=== PATIENT | male | born 1980 | race Caucasian/White ===

== ENCOUNTER 2018-08-24 02:27 | Inpatient (IN) | payer BC ==
[2018-08-24 03:54] LABS: Absolute Lymphocytes (CBC) 1.6 K/uL (0.7-4.9); Absolute Monocytes 0.7 K/uL (0.1-1.3); Absolute Neutrophil 7.1 K/uL (1.8-8.0); Basophils % 0.4 % (0-1.3); Eosinophils % 3.1 % (0-4.4); Hematocrit 47.5 % (39.6-49.0); Lymphocytes % 16.4 % (15.3-44.8); MCV 88.6 fL (80-100); MPV 9.7 fL (7.6-11.3); Monocytes % 7.2 % (3.3-12.3); RBC Red Blood Cell Count 5.36 M/uL (4.33-5.43)
[2018-08-24 04:04] LABS: Magnesium 2.2 mg/dL (1.8-2.4); Potassium 3.6 mmol/L (3.5-5.1); Troponin (Emerg Dept Use Only) 0.06 ng/mL (0.0-0.045)
--- NOTE | 2018-08-24 04:40 | EDPHYS ---
Physician Documentation [facility] Name: Adilson Bull Age: 37 yrs Sex: Male : 1980 Arrival Date: 08/24/2018 Time: 02:27 Bed 19 Private MD: ED Physician Govind Liu HPI: 08/24 02:50 This 37 yrs old Male presents to ER via EMS with complaints of Palpitations. rn 02:50 The patient presents with a history of heart racing. Onset: The symptoms/episode rn began/occurred just prior to arrival, at 12:00. Duration: The patient or guardian reports a single episode, that is now resolved. Modifying factors: The symptoms are aggravated by nothing. The symptoms are alleviated by nothing. Severity of symptoms: At their worst the symptoms were moderate in the emergency department the symptoms have resolved. The patient has experienced a previous episode. REports palpitations, began at rest around midnight tonight, now resolved, lasted for about 1 hour, no fever/cough/abd pain/vomiting/diarrhea. REports felt like had trouble breathing. Reports has happened once before and unclear diagnosis. . Historical: - Allergies: 02:52 No Known Allergies; lp1 - Home Meds: 02:52 nifedipine 90 mg Oral TbER 1 tab once daily [Active]; metoprolol tartrate 100 mg Oral lp1 tab 0.5 tab 2 times per day [Active]; terazosin 5 mg oral cap twice a day [Active]; - PMHx: 02:52 Hypertension; lp1 - PSHx: 02:52 None; lp1 - Immunization history:: Adult Immunizations up to date. - Social history:: Smoking status: Patient uses tobacco products, smokes one pack cigarettes per day. - Family history:: not pertinent. - Ebola Screening: : No symptoms or risks identified at this time. - Hospitalizations: : No recent hospitalization is reported. ROS: 02:50 Constitutional: Negative for fever, chills, and weight loss, Eyes: Negative for injury, rn pain, redness, and discharge, Neck: Negative for injury, pain, and swelling, Cardiovascular: Negative for edema Respiratory: Negative for cough, wheezing, and pleuritic chest pain, Abdomen/GI: Negative for abdominal pain, nausea, vomiting, diarrhea, and constipation, MS/Extremity: Negative for injury and deformity, Skin: Negative for injury, rash, and discoloration, Neuro: Negative for headache, weakness, numbness, tingling, and seizure. Exam: 02:50 Constitutional: This is a well developed, well nourished patient who is awake, alert, rn and in no acute distress. Head/Face: Normocephalic, atraumatic. Eyes: Pupils equal round and reactive to light, extra-ocular motions intact. Lids and lashes normal. Conjunctiva and sclera are non-icteric and not injected. Cornea within normal limits. Periorbital areas with no swelling, redness, or edema. ENT: MMM Neck: Trachea midline, no thyromegaly or masses palpated, and no cervical lymphadenopathy. Supple, full range of motion without nuchal rigidity, or vertebral point tenderness. No Meningismus. Cardiovascular: regular rate, no murmur Respiratory: Lungs have equal breath sounds bilaterally, clear to auscultation. No rales, rhonchi or wheezes noted. No increased work of breathing, no retractions or nasal flaring. Abdomen/GI: Soft, non-tender, with normal bowel sounds. No distension or tympany. No guarding or rebound. No evidence of tenderness throughout. Skin: Warm, dry with normal turgor. Normal color with no rashes, no lesions, and no evidence of cellulitis. MS/ Extremity: Pulses equal, no cyanosis. Neurovascular intact. Full, normal range of motion. Equal circumference. Neuro: Awake and alert, GCS 15, oriented to person, place, time, and situation. Cranial nerves II-XII grossly intact. Motor strength 5/5 in all extremities. Sensory grossly intact. Vital Signs: 02:30 BP 166 / 111; Pulse 111; Resp 18; Temp 98.8(O); Pulse Ox 96% on R/A; Weight 90.72 kg; lp1 Height 5 ft. 10 in. (177.80 cm); Pain 0/10; 03:00 BP 128 / 78; Pulse 97; Resp 18; Pulse Ox 97% on R/A; lp1 03:30 BP 152 / 98; Pulse 85; Resp 16; Pulse Ox 95% on R/A; lp1 04:00 BP 156 / 97; Pulse 85; Resp 17; Pulse Ox 97% on R/A; lp1 05:00 BP 138 / 91; Pulse 84; Resp 18; Pulse Ox 96% on R/A; lp1 06:00 BP 129 / 86; Pulse 90; Resp 18; Pulse Ox 98% on R/A; lp1 07:00 BP 136 / 85; Pulse 89; Resp 17; Pulse Ox 96% on R/A; em 08:00 BP 125 / 83; Pulse 79; Resp 19; Pulse Ox 95% on R/A; em 02:30 Body Mass Index 28.70 (90.72 kg, 177.80 cm) lp1 MDM: 02:31 Patient medically screened. rn 04:38 Differential diagnosis: arrythmia, dehydration, stress disorder. Data reviewed: vital rn signs, nurses notes, lab test result(s), EKG, radiologic studies, plain films, and as a result, I will admit patient. Counseling: I had a detailed discussion with the patient and/or guardian regarding: the historical points, exam findings, and any diagnostic results supporting the discharge/admit diagnosis, lab results, radiology results, the need for further work-up and treatment in the hospital. Admission orders: after a detailed discussion of the patient's condition and case, the admit orders are written by me. ED course: + elevated troponin, asymptomatic since arrival, unclear if arrythmia causing demand ischemia vs NSTEMI, given aspirin and lovenox, admitted to Dr. Han, notified \T\ [id number].. 08/24 02:46 Order name: Basic Metabolic Panel; Complete Time: 04:05 rn 08/24 02:46 Order name: CBC with Diff rn 08/24 02:46 Order name: Magnesium; Complete Time: 04:05 rn 08/24 02:46 Order name: Troponin (emerg Dept Use Only); Complete Time: 04:05 rn 08/24 02:46 Order name: XRAY Chest (1 view) rn 08/24 07:23 Order name: Lipid Profile EDMA 08/24 02:46 Order name: EKG; Complete Time: 02:47 rn 08/24 02:46 Order name: Cardiac monitoring; Complete Time: 02:56 rn 08/24 02:46 Order name: EKG - Nurse/Tech; Complete Time: 02:56 rn 08/24 02:46 Order name: IV Saline Lock; Complete Time: 02:56 rn 08/24 02:46 Order name: Labs collected and sent; Complete Time: 02:56 rn 12/02 04:06 Order name: EKG; Complete Time: 04:07 rn 08/24 02:46 Order name: O2 Per Protocol; Complete Time: 02:56 rn 08/24 02:46 Order name: O2 Sat Monitoring; Complete Time: 02:56 rn 08/24 04:06 Order name: EKG - Nurse/Tech; Complete Time: 04:31 rn Administered Medications: 04:39 Not Given (Patient states recieving ASA x4 with EMS): Aspirin Chewable Tablet 324 mg PO lp1 once; 81 mg tablets x 4 04:47 Drug: Lovenox 90 mg Route: Sub-Q; Site: right lower abdomen; lp1 06:57 Follow up: Response: No adverse reaction lp1 Disposition: 08/24/18 04:39 Hospitalization ordered by Kate Han for Inpatient Admission. Preliminary diagnosis are Chest pain, unspecified, Palpitations, Non-ST elevation (NSTEMI) myocardial infarction. - Bed requested for Telemetry/MedSurg (Inpatient). - Status is Inpatient Admission. rb1 - Condition is Stable. - Problem is new. - Symptoms have improved. UTI on Admission? No Signatures: Dispatcher [employer] EDMS Fatmata Arias RN RN kl Govind Liu MD MD rn Pena, Laura, RN RN lp1 Mackenzie Nixon, RN RN rb1 Corrections: (The following items were deleted from the chart) 06:25 04:39 Hospitalization Ordered by Kate Han MD for Inpatient Admission. Preliminary kl diagnosis is Chest pain, unspecified; Palpitations; Non-ST elevation (NSTEMI) myocardial infarction. Bed requested for Telemetry/MedSurg (Inpatient). Status is Inpatient Admission. Condition is Stable. Problem is new. Symptoms have improved. UTI on Admission? No. rn 08:45 06:25 08/24/2018 04:39 Hospitalization Ordered by Kate Han MD for Inpatient rb1 Admission. Preliminary diagnosis is Chest pain, unspecified; Palpitations; Non-ST elevation (NSTEMI) myocardial infarction. Bed requested for Telemetry/MedSurg (Inpatient). Status is Inpatient Admission. Condition is Stable. Problem is new. Symptoms have improved. UTI on Admission? No. kl
--- NOTE | 2018-08-24 04:40 | ER ---
Nurse's Notes [facility] Name: Adilson Bull Age: 37 yrs Sex: Male : 1980 Arrival Date: 08/24/2018 Time: 02:27 Bed 19 Private MD: Diagnosis: Chest pain, unspecified;Palpitations;Non-ST elevation (NSTEMI) myocardial infarction Presentation: 08/24 02:30 Presenting complaint: EMS states: Called for patient having chest pain, feeling like lp1 heart is fluttering, sweating, short of breath; On arrival of EMS, symptoms resolved, patient denies chest pain but continued headache; Per EMS, patient hypertensive at 255/138, HR 130's, hx of HTN, has not taken meds x 3 weeks-does not like the way it makes him feel. Transition of care: patient was not received from another setting of care. Onset of symptoms was August 24, 2018 at 00:00. Risk Assessment: Do you want to hurt yourself or someone else? Patient reports no desire to harm self or others. Initial Sepsis Screen: Does the patient meet any 2 criteria? No. Patient's initial sepsis screen is negative. Does the patient have a suspected source of infection? No. Patient's initial sepsis screen is negative. Care prior to arrival: None. 02:30 Method Of Arrival: EMS: [facility] lp1 02:30 Acuity: JUSTUS 3 lp1 Historical: - Allergies: 02:52 No Known Allergies; lp1 - Home Meds: 02:52 nifedipine 90 mg Oral TbER 1 tab once daily [Active]; metoprolol tartrate 100 mg Oral lp1 tab 0.5 tab 2 times per day [Active]; terazosin 5 mg oral cap twice a day [Active]; - PMHx: 02:52 Hypertension; lp1 - PSHx: 02:52 None; lp1 - Immunization history:: Adult Immunizations up to date. - Social history:: Smoking status: Patient uses tobacco products, smokes one pack cigarettes per day. - Family history:: not pertinent. - Ebola Screening: : No symptoms or risks identified at this time. - Hospitalizations: : No recent hospitalization is reported. Screenin:55 Abuse screen: Denies threats or abuse. Denies injuries from another. Nutritional lp1 screening: No deficits noted. Tuberculosis screening: No symptoms or risk factors identified. Fall Risk None identified. Assessment: 02:54 General: Appears in no apparent distress. Behavior is appropriate for age. Pain: Denies lp1 pain. Neuro: Level of Consciousness is awake, alert, obeys commands, Oriented to person, place, time, situation, Pupils are PERRLA, Reports headache. Cardiovascular: Reports chest pain, resolved at this time Patient's skin is warm and dry. Rhythm is sinus rhythm. Respiratory: Respiratory effort is even, unlabored, Breath sounds are clear bilaterally. GI: No signs and/or symptoms were reported involving the gastrointestinal system. : No signs and/or symptoms were reported regarding the genitourinary system. EENT: No signs and/or symptoms were reported regarding the EENT system. Derm: Skin is pink, warm \T\ dry. Musculoskeletal: Circulation, motion, and sensation intact. 04:00 Reassessment: Patient appears in no apparent distress at this time. Patient and/or lp1 family updated on plan of care and expected duration. Pain level reassessed. Patient resting, eyes closed, respirations unlabored. 04:41 Reassessment: Patient aware of pending admission per Provider. lp1 05:40 Reassessment: Patient appears in no apparent distress at this time. Patient resting, lp1 eyes closed, respirations unlabored; aware of pending admission. 06:40 Reassessment: Dr. Han at bedside. lp1 08:05 Reassessment: DANTE Mann gave report to DANTE Ulloa. Information from the SBAR was em given. All questions asked and answered. Vital Signs: 02:30 BP 166 / 111; Pulse 111; Resp 18; Temp 98.8(O); Pulse Ox 96% on R/A; Weight 90.72 kg; lp1 Height 5 ft. 10 in. (177.80 cm); Pain 0/10; 03:00 BP 128 / 78; Pulse 97; Resp 18; Pulse Ox 97% on R/A; lp1 03:30 BP 152 / 98; Pulse 85; Resp 16; Pulse Ox 95% on R/A; lp1 04:00 BP 156 / 97; Pulse 85; Resp 17; Pulse Ox 97% on R/A; lp1 05:00 BP 138 / 91; Pulse 84; Resp 18; Pulse Ox 96% on R/A; lp1 06:00 BP 129 / 86; Pulse 90; Resp 18; Pulse Ox 98% on R/A; lp1 07:00 BP 136 / 85; Pulse 89; Resp 17; Pulse Ox 96% on R/A; em 08:00 BP 125 / 83; Pulse 79; Resp 19; Pulse Ox 95% on R/A; em 02:30 Body Mass Index 28.70 (90.72 kg, 177.80 cm) lp1 ED Course: 02:27 Patient arrived in ED. al2 02:31 Govind Liu MD is Attending Physician. rn 02:45 Michelle Faulkner, DANTE is Primary Nurse. lp1 02:49 Triage completed. lp1 02:50 Arm band placed on left wrist. lp1 02:53 Patient has correct armband on for positive identification. Bed in low position. Call lp1 light in reach. site monitor on. Pulse ox on. NIBP on. 02:53 EKG done, by ED staff, reviewed by Govind Liu MD. lp1 02:54 Inserted saline lock: 20 gauge in right antecubital area, using aseptic technique. lp1 Blood collected. By [place]. Patient maintains SpO2 saturation greater than 95% on room air. 03:06 X-ray completed. Portable x-ray completed in exam room. Patient tolerated procedure sg4 well. 03:07 XRAY Chest (1 view) In Process Unspecified. EDMS 04:39 Kate Han MD is Hospitalizing Provider. rn 04:44 No provider procedures requiring assistance completed. Patient admitted, IV remains in lp1 place. Administered Medications: 04:39 Not Given (Patient states recieving ASA x4 with EMS): Aspirin Chewable Tablet 324 mg PO lp1 once; 81 mg tablets x 4 04:47 Drug: Lovenox 90 mg Route: Sub-Q; Site: right lower abdomen; lp1 06:57 Follow up: Response: No adverse reaction lp1 Outcome: 04:39 Decision to Hospitalize by Provider. rn 04:44 Condition: stable lp1 06:55 Instructed on the need for admit. lp1 08:45 Patient left the ED. rb1 Signatures: Dispatcher [employer] EDMS Tony Ayala, FLAKEBOARD LINE TENDER FLAKEBOARD LINE TENDER em Govind Liu MD MD rn Michelle Faulkner RN RN lp1 Mackenzie Nixon RN RN rb1 Vicki Sullivan2 Lolly Ojeda sg4 Corrections: (The following items were deleted from the chart) 02:53 02:30 Presenting complaint: EMS states: Called for patient having chest pain, feeling lp1 like heart is fluttering, sweating, short of breath; On arrival of EMS, symptoms resolved, patient denies chest pain but continued headache; Per EMS, patient hypertensive at 255/138, hx of HTN, has not taken meds x 3 weeks-does not like the way it makes him feel lp1 02:55 02:54 Cardiovascular: Patient's skin is warm and dry. Rhythm is sinus rhythm lp1 lp1 04:42 04:00 BP 115 / 67; Pulse 79bpm; Resp 18bpm; Pulse Ox 100% RA; lp1 lp1 08:15 08:05 Reassessment: Gave report to DANTE Ulloa. Information from the SBAR was given. All em questions asked and answered. em
[2018-08-24] MEDS ORDERED: ASPIRIN 81 MG CHEWABLE TABLET ONE (04:43)
[2018-08-24] MEDS ORDERED: ENOXAPARIN 100 MG/ML SYR SQ ONE (04:44)
[2018-08-24] MEDS ORDERED: MORPHINE 4 MG/ML SYR IV PRN (05:59)
--- NOTE | 2018-08-24 06:15 | EKG ---
Test Date: 2018-08-24 Test Time: 04:22:47 Nurse Researcher: SAMY MEASUREMENT RESULTS: Intervals: Rate: 81 NJ: 144 QRSD: 92 QT: 418 QTc: 485 [place]: P: 49 NJ: 144 QRS: -24 T: 139 INTERPRETIVE STATEMENTS: Normal sinus rhythm Left atrial enlargement Left ventricular hypertrophy with repolarization abnormality Prolonged QT Abnormal ECG Compared to ECG 08/24/2018 02:42:40 No significant changes Electronically Signed On 08-24-18 06:14:54 PAD CUTTER by Brice Angel
--- NOTE | 2018-08-24 06:16 | EKG ---
Test Date: 2018-08-24 Test Time: 02:42:40 Barytes Grinder: SAMY MEASUREMENT RESULTS: Intervals: Rate: 90 WA: 138 QRSD: 94 QT: 396 QTc: 484 [place]: P: 58 WA: 138 QRS: -11 T: 135 INTERPRETIVE STATEMENTS: Normal sinus rhythm Possible Left atrial enlargement Left ventricular hypertrophy with repolarization abnormality Prolonged QT Abnormal ECG Compared to ECG 07/22/2017 06:34:18 no significant change from previous ECG Electronically Signed On 08-24-18 06:15:09 VP TALENT MANAGEMENT by Brice Angel
[2018-08-24] MEDS ORDERED: ENOXAPARIN 80 MG/0.8 ML SQ SCH (09:00)
[2018-08-24] MEDS ORDERED: METOPROLOL TAR 50 MG TAB PO SCH (09:00)
[2018-08-24] MEDS ORDERED: ENOXAPARIN 40 MG/0.4 ML SQ SCH (09:00)
[2018-08-24 09:20] VITALS: BMI 28.7
--- NOTE | 2018-08-24 10:00 | RAD REPORT ---
EXAM DESCRIPTION: RAD - Chest Single View - 08/24/2018 3:07 am CLINICAL HISTORY: Chest pain, palpitations COMPARISON: June 2017 TECHNIQUE: AP portable chest image was obtained 0258 hours . FINDINGS: No acute lung parenchymal process. Lung markings are similar to comparison. Heart size is upper normal. No vascular engorgement. No measurable pleural effusion and no pneumothorax. No acute b tree abnormality seen. No acute aortic findings suspected. IMPRESSION: No acute cardiopulmonary process. No significant interval change.
[2018-08-24] MEDS: ASPIRIN EC 81 MG TAB PO SCH (10:42)
--- NOTE | 2018-08-24 10:42 | P.HP ---
Certification for Inpatient Patient admitted to: Inpatient With expected LOS: >2 Midnights Practitioner: I am a practitioner with admitting privileges, knowledge of patient current condition, hospital course, and medical plan of care. Services: Services provided to patient in accordance with Admission requirements found in Title 42 Section 412.3 of the Code of Federal Regulations Patient History Date of Service: 08/24/18 Reason for admission: Chest pain; elevated troponins History of Present Illness: Patient is a 37yo Gentleman who came into the hospital with chest discomfort. Patient has a history of hypertension L diagnostically years ago. Who is been poorly controlled. He states he has been getting more chest discomfort and shortness of breath. Patient has a history of tobacco use and family history of cardiac disease as well. Patient came into the hospital for further evaluation. The emergency room his troponins were slightly elevated. EKG did not show any acute abnormalities. Patient will need to be admitted to be ruled out and will get cardiology consultation. Patient continues to have some chest discomfort. Will go ahead and start him on anticoagulation along with anti- platelet therapy and statin therapy along with beta-theo. Allergies No Known Allergies Allergy (Verified 07/22/17 01:35) Home Medications: Metoprolol Succinate [Toprol Xl] 50 mg PO BID 08/24/18 Nifedipine [Nifedipine ER] 1 tab PO DAILY 08/24/18 Terazosin HCl 5 mg PO BID 08/24/18 - Past Medical/Surgical History Diabetic: No -: HTN -: tobacco abuse -: reattachment of (L) thumb - Family History Mother Medical History: Hypertension Father Medical History: Cancer Brother Medical History: Hypertension Sister Medical History: Hypertension - Social History Smoking Status: Current every day smoker Alcohol use: Yes CD- Drugs: No Caffeine use: Yes Place of Residence: Home Review of Systems 10-point ROS is otherwise unremarkable Physical Examination - Vital Signs Temperature: 98.8 F Blood Pressure: 125/83 Pulse: 79 Respirations: 19 Pulse Ox (%): 96 - Physical Exam General: Alert, In no apparent distress, Oriented x3 HEENT: Atraumatic, PERRLA, Mucous membr. moist/pink, EOMI, Sclerae nonicteric Neck: Supple, 2+ carotid pulse no bruit, No LAD, Without JVD or thyroid abnormality Respiratory: Clear to auscultation bilaterally, Normal air movement Cardiovascular: Regular rate/rhythm, Normal S1 S2, No murmurs Gastrointestinal: Normal bowel sounds, Soft and benign, Non-distended, No tenderness Musculoskeletal: No clubbing, No swelling, No tenderness Integumentary: No rashes Neurological: Normal gait, Normal speech, Normal strength at 5/5 x4 extr, Normal tone, Sensation intact, Cranial nerves 3-12 intact, Normal affect Lymphatics: No axilla or inguinal lymphadenopathy - Studies Laboratory Data (last 24 hrs) 08/24/18 02:53: WBC 9.8, Hgb 16.6, Hct 47.5, Plt Count 228 08/24/18 02:53: Sodium 140, Potassium 3.6, BUN 19 H, Creatinine 1.40 H, Glucose 129 H, Magnesium 2.2 Assessment & Plan - Problems (Diagnosis) (1) Elevated troponin Onset Date: 07/22/17 Current Visit: No Status: Acute (2) Hypertensive heart disease Current Visit: No Status: Acute Qualifiers: Heart failure presence: without heart failure Qualified Code(s): I11.9 - Hypertensive heart disease without heart failure (3) Malignant hypertension Onset Date: 07/22/17 Current Visit: No Status: Acute (4) Nicotine dependence Current Visit: No Status: Acute Qualifiers: Nicotine product type: cigarettes Substance use status: uncomplicated Qualified Code(s): F17.210 - Nicotine dependence, cigarettes, uncomplicated - Plan 1. Serial troponins and EKG 2. Cardiology consultation 3. Echocardiogram and inpatient stress test(pending cardiology evaluation) 4. Anti-platelet therapy, anti coagulation, beta-theo, statin, and O2 as needed 5. IV morphine for pain 6. Nitro p.r.n. Discharge Plan: Home Plan to discharge in: Greater than 2 days - Advance Directives Does patient have a Living Will: No Does patient have a Durable POA for Healthcare: No - Code Status/Comfort Care Code Status Assessed: Yes Code Status: Full Code Critical Care: No Time Spent Managing PTS Care (In Minutes): 50
[2018-08-24] MEDS: ENOXAPARIN 80 MG/0.8 ML SQ SCH ×2 (11:33→22:06)
--- NOTE | 2018-08-24 16:27 | CON ---
CARDIOLOGY CONSULT Chief Complaint: Irregular heartbeat. History Of Present Illness: Mr. Bull awakened sometime between midnight and 1 with heart racing. An ambulance was called. By the time he got to the emergency room, he was in normal rhythm. There was some discomfort when it was irregular, but not pain. Laboratory test that was drawn included a t roponin. It is abnormal. It is 0.06. His lipid panel is fine. He has renal insufficiency, mildly elevated blood sugar. Mr. Bull has never had heart disease before. Social History: He is a regular tobacco user. Alcohol use moderate. No recreational drugs. Medications: He takes medicines for blood pressure, terazosin, metoprolol, and nifedipine. Allergies: HE HAS NO ALLERGIES. Physical Examination: Vital Signs: He is 5 feet 10 inches, 200 pounds. HEENT: Normal carotids. No bruits. Heart: Normal. Abdomen: Soft. Extremities: Normal. Normal pulses. Impression And Plan: My impression is that the patient may have atrial fibrillation or some other ar rhythmia. We have not seen any. The abnormal troponin associated with a brief amount of arrhythmia would make anyone wonder whether he has coronary artery disease, so I will recommend we do a stress t est and echocardiogram tomorrow. LILLI/WALTER Voice ID: [id number] Report ID: [id number]
[2018-08-24] MEDS: NICOTINE 21 MG/PAT TD SCH (17:43)
--- NOTE | 2018-08-24 19:12 | PN ---
Date of Progress Note: 08/24/2018 Subjective: Patient is seen and examined. Chart reviewed and case discussed with RN and Dr. Angel. Patient states his chest pain has improved. No significant shortness of breath. Medications: Reviewed. Physical Examination: Vital Signs: Temperature 97.2, heart rate 78, blood pressure 144/84, respirations 16, O2 94% on room air. General: Awake, alert, and oriented x3, in in any acute distress. CV: S1, S2. Regular rate and rhythm. Peripheral pulses present. No murmurs. Respiratory: Moving air well bilaterally. No wheezing or stridor. Gastrointestinal: Abdomen is soft, nontender, nondistended. Positive bowel sounds. No guarding or rigidity. Extremities: No clubbing, cyanosis, or edema. Neurologic: Nonfocal. Laboratory Data: Sodium 140, potassium 3.6, chloride 106, CO2 of 26, BUN 19, creatinine 1.4, glucose 129, calcium 8.2. Troponin 0.06, 0.13. Triglycerides 96, cholesterol 157, LDL 107, HDL 31. WBC 9. 8, H and H 16.6 and 47.5, platelets 228. Chest x-ray shows no acute cardiopulmonary process. EKG sh ows normal sinus rhythm, rate of 81, LVH with repolarization abnormality, prolonged QT. Assessment And Plan: A 37-year-old male with: 1.Chest pain, rule out acute coronary syndrome. The patient does have elevated troponin level of 0. 06, 0.13. We will continue with chest pain guidelines. Cardiology on board. Dr. Angel recommends a stress test in a.m. 2.Hypertensive heart disease. The EKG shows left ventricular hypertrophy. 3.Malignant hypertension. 4.Nicotine dependence with cigarette smoking, continuous, counseled. 5.Chronic kidney disease, stage 2, clear. Monitor creatinine. Avoid NSAIDs and nephrotoxins. 6.Gastrointestinal and deep venous thrombosis prophylaxis addressed. Plan: Cardiac stress test is in a.m. SA/MODL Voice ID: [id number] Report ID: [id number]
[2018-08-24] MEDS: METOPROLOL XL 100 MG TAB PO SCH (21:53)
[2018-08-24] MEDS: ATORVASTATIN 20 MG TAB PO SCH (21:53)
[2018-08-25 05:55] LABS: Absolute Lymphocytes (CBC) 2.9 K/uL (0.7-4.9); Absolute Neutrophil 6.5 K/uL (1.8-8.0); Basophils % 0.7 % (0-1.3); Eosinophils % 3.7 % (0-4.4); Hematocrit 47.9 % (39.6-49.0); Lymphocytes % 27.1 % (15.3-44.8); MCV 89.6 fL (80-100); MPV 9.5 fL (7.6-11.3); Monocytes % 8.8 % (3.3-12.3); RBC Red Blood Cell Count 5.34 M/uL (4.33-5.43)
[2018-08-25 06:09] LABS: Potassium 4.1 mmol/L (3.5-5.1)
[2018-08-25] MEDS ORDERED: REGADENOSON 0.4 MG/5 ML SYR IV ONE (09:21)
[2018-08-25] MEDS: NICOTINE 21 MG/PAT TD SCH (10:11)
[2018-08-25] MEDS: ENOXAPARIN 80 MG/0.8 ML SQ SCH (10:11)
[2018-08-25] MEDS: ASPIRIN EC 81 MG TAB PO SCH (10:11)
[2018-08-25] MEDS: METOPROLOL XL 100 MG TAB PO SCH ×2 (10:12→20:39)
[2018-08-25] MEDS: HYDRALAZINE HCL 20 MG/ML VIAL IV PRN ×2 (11:37→17:02)
--- NOTE | 2018-08-25 15:21 | ECHO ---
HEIGHT: 5 ft 10 in WEIGHT: 200 lb 0 oz DATE OF STUDY: 08/25/[address]: 2-DIMENSIONAL: YES M.MODE: YES DOPPLER: YES COLOR FLOW: YES TDS: NO PORTABLE: NO DEFINITY: NO BUBBLE STUDY: NO DIAGNOSIS: CHEST PAIN RULE OUT ACUTE CORONARY SYNDROME CARDIAC HISTORY: CATHERIZATION: NO SURGERY: NO PROSTHETIC VALVE: NO PACEMAKER: NO MEASUREMENTS (cm) DIASTOLIC (NORMALS) SYSTOLIC (NORMALS) IVSd 1.4 (0.6-1.2) LA Diam 3.9 (1.9-4.0) LVEF 61% LVIDd 4.6 (3.5-5.7) LVIDs 3.1 (2.0-3.5) %FS 33% LVPWd 1.4 (0.6-1.2) Ao Diam 2.8 (2.0-3.7) 2 DIMENSIONAL ASSESSMENT: RIGHT ATRIUM: NORMAL LEFT ATRIUM: NORMAL RIGHT VENTRICLE: NORMAL LEFT VENTRICLE: LEFT VENTRICULAR HYPERTROPHY TRICUSPID VALVE: NORMAL MITRAL VALVE: NORMAL PULMONIC VALVE: NORMAL AORTIC VALVE: NORMAL PERICARDIAL EFFUSION: NONE AORTIC ROOT: NORMAL LEFT VENTRICULAR WALL MOTION: NORMAL DOPPLER/COLOR FLOW: NORMAL COMMENTS: LEFT VENTRICULAR HYPERTROPHY. OTHERWISE NORMAL 2D ECHOCARDIOGRAM WITH DOPPLER. TECHNOLOGIST: ABY RIBERA RDCS
--- NOTE | 2018-08-25 15:54 | RAD REPORT ---
EXAM DESCRIPTION: NM - Rest Stress Cardiac Imaging - 08/25/2018 3:39 pm CLINICAL HISTORY: CP Chest pain. COMPARISON: Rest Stress Cardiac Imaging dated 07/23/2017 TECHNIQUE: The patient was administered approximately 10mCi of Tc 99m Sestamibi prior to resting SPE CT imaging of the heart. The patient was then administered approximately 30 mCi of Tc 99m Sestamibi f ollowing exercise or pharmacologic stress. Multiplanar SPECT images were reviewed. FINDINGS: The left ventricular cavity appears prominent in size on both rest and stress. Mild dimini shed radiopharmaceutical accumulation is seen along the lateral wall with stress. No fixed defect is seen to suggest hibernating myocardium or scarred myocardium. The end diastolic volume is 190 ml, the end systolic volume is 129 ml, and the ejection fraction is 3 2 %. IMPRESSION: Mild lateral wall stress-induced ischemia is suspected. Left ventricular cavity size is prominent on rest and stress with diminished ejection fraction of 32% .
--- NOTE | 2018-08-25 16:46 | TREADPHA ---
DX: ABNORMAL TROPONIN Date of Study: 08/25/2018 Ht: 5 10 Wt: 200 lb 0 oz Consulting Physician: DR. RUIZ MEDICATIONS: TYLENOL, ASPIRIN, LIPITOR, LOVENOX, TOPROL XL. HISTORY: 37 YEAR OLD MALE WITH COMPLAINTS OF CHEST PAIN, PALPITATIONS, NON- ST ELEVATION MYOCARDIAL INFARCTION. HISTORY OF HYPERTENSION, SMOKER, 1 PACK PER DAY. PHYSICIAL EXAMINATION: RESTING B.P.: 183/120 RESTING H.R.: 92 RESTING EKG: LEFT VENTRICULAR HYPERTROPHY WITH REPOLARIZATION ABNORMALITIES PROTOCOL: LEXISCAN EXERCISE TIME: 3:30 B.P. AT PEAK STRESS: 187/122 IMPRESSION: LEXISCAN INJECTED PER PROTOCOL, FOLLOWED BY CARDIOLITE PER PROTOCOL. SEE NUCLEAR MEDICINE REPORT. NO SUPRAVENTRICULAR TACHYCARDIA, NO VENTRICULAR TACHYCARDIA, NO PREMATURE ATRIAL COMPLEXES, NO PREMATURE VENTRICULAR COMPLEXES, NO CHEST PAIN REPORTED. NON-DIAGNOSITC EXERCISE LEXISCAN STUDY.
[2018-08-25] MEDS: ACETAMINOPHEN 500 MG TAB PO PRN (19:31)
[2018-08-25] MEDS: ATORVASTATIN 20 MG TAB PO SCH (20:40)
[2018-08-26] MEDS: ASPIRIN EC 81 MG TAB PO SCH (07:54)
[2018-08-26] MEDS: METOPROLOL XL 100 MG TAB PO SCH (07:54)
[2018-08-26] MEDS: HYDRALAZINE HCL 20 MG/ML VIAL IV PRN (10:02)
[2018-08-26] MEDS: NICOTINE 21 MG/PAT TD SCH (10:03)
[2018-08-26] MEDS ORDERED: NA CHLORIDE 0.9% 500 ML ONE (10:39)
[2018-08-26] MEDS ORDERED: HEPA 1000U/500MLS 1,000 UNIT/500 ML BAG IV ONE (10:39)
[2018-08-26] MEDS ORDERED: NA CHLORIDE 0.9% 0 ML ONE (10:40)
[2018-08-26] MEDS ORDERED: MIDAZOLAM HCL 2 MG/2 ML INJ ONE ×2 (10:40→10:52)
[2018-08-26] MEDS ORDERED: ATROPINE SULF 1 MG/10 ML SYR IV ONE (10:40)
[2018-08-26] MEDS ORDERED: FENTANYL CITR 100 MCG/2 ML ONE ×2 (10:43→11:18)
[2018-08-26] MEDS: ACETAMINOPHEN 500 MG TAB PO PRN (13:33)
[2018-08-26 16:20] VITALS: O2SAT 8
[2018-08-26 17:54] VITALS: BP 160/108; TEMP 98.1
--- NOTE | 2018-08-26 21:58 | OP ---
Surgeon: Obdulio Bain MD Dot Etcher: Tobi Sanderson. Total conscious sedation was 30 minutes. The patient will be going home today. He will see me in e office in 2 weeks. Indications: Admitted to Dr. Rick's service on 08/24/2018. The patient had come in with tachycardi a, shortness of breath, and atypical chest pain, has a positive Cardiolite, scheduled for a heart cat heterization today as an inpatient. Description Of Procedure: Brought to the laborer car barn today and prepped and draped in the routine steril e fashion, given 3 mg of Versed for IV sedation. A 6-Faroese sheath was introduced in the right commo n femoral artery. Angiogram there was normal. Angio-Seal was used to close the case. The 6-Faroese catheters were used to do the left and right coronary injection. He had normal coronaries, normal LA D, normal circumflex, normal RCA, and left-dominant system. A pigtail was introduced in the left lilibeth tricle. LV-gram was done. He had a hyperdynamic left ventricle with a normal ejection fraction, nor mal wall motion, and normal end-diastolic pressure. There were no complications. Blood Loss: 5 cc. Postoperative Diagnoses: Positive Cardiolite, tachycardia, and normal heart catheterization. Plan: Plan is for medical therapy with beta blockers. Print Shop Chief Clerk: Sandy Burton Voice ID: [id number] Report ID: [id number]
--- NOTE | 2018-08-27 08:35 | DS ---
Date of Discharge: 08/26/2018 Consultants: Dr. Angel, Cardiology. Procedures: Cardiac stress test on 08/25/2018. Admitting Diagnoses: 1. Elevated troponin and chest pain. 2. Hypertensive heart disease without heart failure. 3. Malignant hypertension. 4. Nicotine dependence, cigarette smoking, uncomplicated. 5. Acute kidney injury. Discharge Diagnoses: 1. Elevated troponin and chest pain. 2. Hypertensive heart disease. 3. Malignant hypertension. 4. Nicotine dependence with cigarette smoking, continuous, counseled. 5. Chronic kidney disease stage 2, creatinine improved. Hospital Course: The patient is a 37-year-old male with past medical history of hypertension, tobacco use, and chronic kidney disease, comes in with chest discomfort. The patient was admitted for further evaluation. His cardiac enzymes were elevated at 0.06, 0.13, 0.37. Lipid panel showed low HDL at 31. Triglycerides and cholesterol were normal. LDL was 107. The patient did have some hypertensive heart disease, on EKG. Echocardiogram and stress test ordered. Cardiac stress test was ordered. The patient was also seen by Dr. Angel with Cardiology. He did not have any arrhythmias. The patient was counseled regarding nicotine dependence. Followup: The patient to follow up with primary care physician in 2-3 days. Follow up with typewriters functional tester, Dr. Angel in 2 weeks. Return to the ER for worsening condition. Medications: As per medication reconciliation list. Diet: Heart healthy. Physical Examination: General: Awake, alert, oriented x3, not in acute distress. CV: S1 and S2. No murmurs. Respiratory: Moving air well bilaterally. No wheezing. Gastrointestinal: Abdomen is soft, nontender, nondistended. Positive bowel sounds. Extremities: No clubbing, cyanosis, or edema. Neurologic: Nonfocal. ADDENDUM: Patients stress test was positive. Scheduled for heart cath. Please see progress note for details SA/MODL Voice ID: [id number] Report ID: [id number] MTDD
== END 2018-08-26 18:19 | disposition home or self-care (01) | DRG 287 ==
LOC: ER 02:27 → INTOOBSV 04:49 → ERHOLD 04:49 → 2ND 08:13 → OBSVTOIN 08-25 04:48
PROVIDERS: ADMIT Hospitalist; ATTEND Family Medicine
PROC: 4A023N7 Measurement of Cardiac Sampling and Pressure, Left Heart, Percutaneous Approach (ICD-10-PCS; principal; 2018-08-26)
PROC: B2111ZZ Fluoroscopy of Multiple Coronary Arteries using Low Osmolar Contrast (ICD-10-PCS; 2018-08-26)
DX: R07.9 Chest pain, unspecified (principal); N17.9 Acute kidney failure, unspecified; R79.89 Other specified abnormal findings of blood chemistry; I13.10 Hypertensive heart and chronic kidney disease without heart failure, with stage 1 through stage 4 chronic kidney disease, or unspecified chronic kidney disease; N18.2 Chronic kidney disease, stage 2 (mild); F17.210 Nicotine dependence, cigarettes, uncomplicated; R00.0 Tachycardia, unspecified
CPT/HCPCS: 36415; 71045; 78452; 80048; 80061; 82962; 83735; 84484; 85025; 93005; 93017; 93306; 96372; 99285; A9500; G0378; J0360; J0583; J1650; J2250; J2785; J3010

== ENCOUNTER 2019-11-08 08:38 | Observation (INO) | payer BC ==
[2019-11-08] MEDS ORDERED: NITROGLYCERIN 0.4 MG/TAB SL ONE (08:56)
[2019-11-08 09:04] LABS: Absolute Lymphocytes (CBC) 1.9 K/uL (0.7-4.9); Basophils % 0.7 % (0-1.3); Hematocrit 50.5 % (39.6-49.0); Lymphocytes % 22.8 % (15.3-44.8); RBC Red Blood Cell Count 5.76 M/uL (4.33-5.43)
[2019-11-08 09:08] LABS: Protime INR 1.11
[2019-11-08 09:24] LABS: ALT/SGPT 33 U/L (12-78); AST/SGOT 17 U/L (15-37); Albumin 4.1 g/dL (3.4-5.0); Alkaline Phosphatase 61 U/L (45-117); BUN Blood Urea Nitrogen 13 mg/dL (7-18); Bicarbonate 25 mmol/L (21-32); Bilirubin Direct 0.1 mg/dL (0-0.2); Bilirubin Total 0.5 mg/dL (0.2-1.0); Glucose Level 138 mg/dL (74-106); Magnesium 1.9 mg/dL (1.8-2.4); NT PRO-BNP 87 pg/mL (<125); Potassium 3.7 mmol/L (3.5-5.1); Protein, Total 7.1 g/dL (6.4-8.2); Sodium Level 139 mmol/L (136-145); Troponin (Emerg Dept Use Only) < 0.02 ng/mL (0.0-0.045)
--- NOTE | 2019-11-08 09:52 | ER ---
Nurse's Notes [facility] Name: Adilson Bull Age: 39 yrs Sex: Male : 1980 Arrival Date: 11/08/2019 Time: 08:40 Bed 3 Private MD: Diagnosis: Unstable angina Presentation: 11/08 08:47 Presenting complaint: Patient states: fatigue, nausea, chest/ L arm discomfort and ss shortness of breath on exertion since noon yesterday. Transition of care: patient was not received from another setting of care. Onset of symptoms was November 07, 2019. Risk Assessment: Do you want to hurt yourself or someone else? Patient reports no desire to harm self or others. Initial Sepsis Screen: Does the patient meet any 2 criteria? RR > 20 per min. HR > 90 bpm. Does the patient have a suspected source of infection? No. Patient's initial sepsis screen is negative. Care prior to arrival: Medication(s) given: ASA, 81 mg, x 4. 08:47 Acuity: JUSTUS 2 ss 08:47 Method Of Arrival: Ambulatory ss Historical: - Allergies: 08:49 No Known Allergies; ss - Home Meds: 08:49 terazosin 5 mg Oral cap twice a day [Active]; nifedipine 90 mg Oral TbER 1 tab once ss daily [Active]; metoprolol tartrate 100 mg Oral tab 0.5 tab 2 times per day [Active]; - PMHx: 08:49 Hypertension; ss - PSHx: 08:49 None; ss - Immunization history:: Adult Immunizations up to date. - Coronavirus screen:: The patient has NOT traveled to [place] in the past 14 days. Proceed with normal triage process as indicated. - Social history:: Smoking status: Patient reports the use of cigarette tobacco products, smokes one pack cigarettes per day. - Ebola Screening: : Patient denies exposure to infectious person Patient denies travel to an Ebola-affected area in the 21 days before illness onset. Screenin:57 Abuse screen: Denies threats or abuse. Nutritional screening: No deficits noted. em Tuberculosis screening: No symptoms or risk factors identified. Fall Risk None identified. Assessment: 08:58 General: Appears in no apparent distress. uncomfortable, well groomed, well developed, em well nourished, Behavior is calm, cooperative, appropriate for age, Denies fever. Pain: Complains of pain in chest Pain radiates to left arm Pain currently is 3 out of 10 on a pain scale. Quality of pain is described as pressure, Pain began 1 hour ago. Neuro: Level of Consciousness is awake, alert, obeys commands, Oriented to person, place, time, situation, Appropriate for age. Cardiovascular: Reports chest pain, nausea, palpitations, shortness of breath, Denies diaphoresis, vomiting, Capillary refill < 3 seconds Patient's skin is warm and dry. Rhythm is sinus rhythm. Respiratory: Reports shortness of breath on exertion Airway is patent Respiratory effort is even, unlabored, Respiratory pattern is regular, symmetrical. GI: Reports nausea. Derm: Skin is intact, is healthy with good turgor, Skin is pink, warm \T\ dry. Musculoskeletal: Capillary refill < 3 seconds, Range of motion: intact in all extremities. 09:23 Reassessment: Patient appears in no apparent distress at this time. rates pain 0/10 em Patient denies pain at this time. Patient states feeling better. Patient states symptoms have improved. 10:15 Reassessment: Patient appears in no apparent distress at this time. Patient and/or em family updated on plan of care and expected duration. Pain level reassessed. Patient is alert, oriented x 3, equal unlabored respirations, skin warm/dry/pink. pending room assignment Patient states feeling better. Patient states symptoms have improved. 11:00 Reassessment: Patient appears in no apparent distress at this time. Patient and/or em family updated on plan of care and expected duration. Pain level reassessed. Patient is alert, oriented x 3, equal unlabored respirations, skin warm/dry/pink. Vital Signs: 08:46 BP 172 / 114; Pulse 123; Resp 21; Temp 97.6; Pulse Ox 100% on R/A; Weight 95.25 kg; ss Height 5 ft. 10 in. (177.80 cm); Pain 4/10; 08:52 BP 152 / 102; Pulse 116; Pulse Ox 99% ; Pain 4/10; ch 09:00 BP 147 / 77; Pulse 116; Resp 20; Pulse Ox 95% on R/A; Pain 3/10; em 09:12 BP 156 / 94; Pulse 98; Resp 18; Pulse Ox 97% on 2 lpm NC; em 09:23 BP 130 / 95; Pulse 82; Resp 18; Pulse Ox 100% on 2 lpm NC; Pain 0/10; em 09:43 BP 135 / 91; Pulse 86; Resp 18; Pulse Ox 98% on 2 lpm NC; em 10:57 BP 145 / 96; Pulse 85; Resp 16; Pulse Ox 98% on R/A; Pain 0/10; em 08:46 Body Mass Index 30.13 (95.25 kg, 177.80 cm) ss 09:00 placed on 2 L via NC em 09:43 rates chest pain 0/10, headache has improved to 2/10 em 10:57 removed O2, states it was bothering his nose em ED Course: 08:40 Patient arrived in ED. sg 08:41 Richard Schafer PA is PHCP. jr8 08:41 Akin Eng MD is Attending Physician. jr8 08:42 Annette Mejia RN is Primary Nurse. ch 08:46 Arm band placed on right wrist. ss 08:48 Triage completed. ss 08:53 Initial lab(s) drawn, by me, sent to lab. Inserted saline lock: 22 gauge in right kj1 antecubital area, using aseptic technique. Blood collected. 08:57 Patient has correct armband on for positive identification. Placed in gown. Bed in low em position. Call light in reach. Side rails up X2. Adult w/ patient. ekg monitor on. Pulse ox on. NIBP on. 08:57 Patient maintains SpO2 saturation greater than 95% on room air. em 09:51 Sawyer Ha MD is Hospitalizing Provider. jr8 10:58 No provider procedures requiring assistance completed. Patient admitted, IV remains in em place. Administered Medications: 08:52 Drug: Nitroglycerin 0.4 mg Route: Sublingual; 08:58 Follow up: Response: No adverse reaction; Marked relief of symptoms; Pain is decreased em 09:00 Follow up: Response: No adverse reaction; Marked relief of symptoms; Pain is decreased em 09:09 Drug: Tylenol 1000 mg Route: PO; em 10:15 Follow up: Response: No adverse reaction; Marked relief of symptoms; Pain is decreased em 09:17 Drug: Lopressor 5 mg Route: IVP; Site: right antecubital; em 09:30 Follow up: Response: No adverse reaction; Marked relief of symptoms; Pain is decreased em 09:56 Not Given (Physician Discretion; increaded to 100 mg per provider ): Lovenox 1 mg/kg em Sub-Q once 09:56 Drug: Lovenox 100 mg Route: Sub-Q; Site: right lower abdomen; em 10:14 Follow up: Response: No adverse reaction em Outcome: 09:51 Decision to Hospitalize by Provider. jr8 10:58 Admitted to Tele accompanied by tech, family with patient, via wheelchair, room 211, em with chart, Report called to DANTE Georges 10:58 Condition: good 10:58 Instructed on the need for admit, Demonstrated understanding of instructions. 11:03 Patient left the ED. em Signatures: Annette Mejia, RN RN Pablo Aldana RN RN Tony Ayala RN RN Kylie Garcia RN RN ss Roszak, Josh, PA PA jr[address] kj1 Corrections: (The following items were deleted from the chart) 09:37 09:00 BP 147 / 77; Pulse 116bpm; Resp 20bpm; Pulse Ox 95% RA; placed on 2 L via NC; em em 10:52 08:58 Nitroglycerin 0.4 mg Sublingual em em
--- NOTE | 2019-11-08 09:52 | EDPHYS ---
Physician Documentation [facility] Name: Adilson Bull Age: 39 yrs Sex: Male : 1980 Arrival Date: 11/08/2019 Time: 08:40 Bed 3 Private MD: ED Physician Akin Eng HPI: 11/08 09:07 This 39 yrs old Male presents to ER via Ambulatory with complaints of Chest jr8 Pain > 30 y/o. 09:07 The patient or guardian reports chest pain that is located primarily in the substernal jr8 area. Onset: acutely, today. The pain radiates to the left arm. Associated signs and symptoms: Pertinent positives: palpitations, shortness of breath. The chest pain is described as a pressure. Duration: The patient or guardian reports a single episode, that is still ongoing. Modifying factors: The symptoms are alleviated by nothing. the symptoms are aggravated by exertion. Severity of pain: At its worst the pain was moderate in the emergency department the pain has improved mildly. The patient has not experienced similar symptoms in the past. The patient has not recently seen a physician. Patient stated that he had nausea and lack of appetite yesterday along with shortness of breath. Stated that today had continuation of symptoms but now having chest pain with radiation . Historical: - Allergies: 08:49 No Known Allergies; ss - Home Meds: 08:49 terazosin 5 mg Oral cap twice a day [Active]; nifedipine 90 mg Oral TbER 1 tab once ss daily [Active]; metoprolol tartrate 100 mg Oral tab 0.5 tab 2 times per day [Active]; - PMHx: 08:49 Hypertension; ss - PSHx: 08:49 None; ss - Immunization history:: Adult Immunizations up to date. - Coronavirus screen:: The patient has NOT traveled to [place] in the past 14 days. Proceed with normal triage process as indicated. - Social history:: Smoking status: Patient reports the use of cigarette tobacco products, smokes one pack cigarettes per day. - Ebola Screening: : Patient denies exposure to infectious person Patient denies travel to an Ebola-affected area in the 21 days before illness onset. ROS: 09:07 Eyes: Negative for injury, pain, redness, and discharge, ENT: Negative for injury, jr8 pain, and discharge, Neck: Negative for injury, pain, and swelling, Back: Negative for injury and pain, MS/Extremity: Negative for injury and deformity, Skin: Negative for injury, rash, and discoloration. 09:07 Cardiovascular: Positive for chest pain, Negative for edema, orthopnea, palpitations, paroxysmal nocturnal dyspnea. 09:07 Respiratory: Positive for dyspnea on exertion, shortness of breath. 09:07 Abdomen/GI: Positive for nausea, Negative for abdominal pain, vomiting, diarrhea, constipation, abdominal cramps, abdominal distension. 09:07 Neuro: Positive for headache. Exam: 09:07 Eyes: Pupils equal round and reactive to light, extra-ocular motions intact. Lids and jr8 lashes normal. Conjunctiva and sclera are non-icteric and not injected. Cornea within normal limits. Periorbital areas with no swelling, redness, or edema. ENT: Nares patent. No nasal discharge, no septal abnormalities noted. Tympanic membranes are normal and external auditory canals are clear. Oropharynx with no redness, swelling, or masses, exudates, or evidence of obstruction, uvula midline. Mucous membranes moist. Neck: Trachea midline, no thyromegaly or masses palpated, and no cervical lymphadenopathy. Supple, full range of motion without nuchal rigidity, or vertebral point tenderness. No Meningismus. Respiratory: Lungs have equal breath sounds bilaterally, clear to auscultation and percussion. No rales, rhonchi or wheezes noted. No increased work of breathing, no retractions or nasal flaring. Abdomen/GI: Soft, non-tender, with normal bowel sounds. No distension or tympany. No guarding or rebound. No evidence of tenderness throughout. Back: No spinal tenderness. No costovertebral tenderness. Full range of motion. Skin: Warm, dry with normal turgor. Normal color with no rashes, no lesions, and no evidence of cellulitis. MS/ Extremity: Pulses equal, no cyanosis. Neurovascular intact. Full, normal range of motion. Neuro: Awake and alert, GCS 15, oriented to person, place, time, and situation. Cranial nerves II-XII grossly intact. Motor strength 5/5 in all extremities. Sensory grossly intact. Cerebellar exam normal. Normal gait. 09:07 Cardiovascular: Rate: tachycardic, Rhythm: regular, Pulses: Pulses are 2+ in right radial artery and left radial artery. Heart sounds: murmur, systolic, grade 3 over 6, Edema: is not appreciated, JVD: is not appreciated. 09:07 ECG was reviewed by the Attending Physician. Vital Signs: 08:46 BP 172 / 114; Pulse 123; Resp 21; Temp 97.6; Pulse Ox 100% on R/A; Weight 95.25 kg; ss Height 5 ft. 10 in. (177.80 cm); Pain 4/10; 08:52 BP 152 / 102; Pulse 116; Pulse Ox 99% ; Pain 4/10; ch 09:00 BP 147 / 77; Pulse 116; Resp 20; Pulse Ox 95% on R/A; Pain 3/10; em 09:12 BP 156 / 94; Pulse 98; Resp 18; Pulse Ox 97% on 2 lpm NC; em 09:23 BP 130 / 95; Pulse 82; Resp 18; Pulse Ox 100% on 2 lpm NC; Pain 0/10; em 09:43 BP 135 / 91; Pulse 86; Resp 18; Pulse Ox 98% on 2 lpm NC; em 10:57 BP 145 / 96; Pulse 85; Resp 16; Pulse Ox 98% on R/A; Pain 0/10; em 08:46 Body Mass Index 30.13 (95.25 kg, 177.80 cm) ss 09:00 placed on 2 L via NC em 09:43 rates chest pain 0/10, headache has improved to 2/10 em 10:57 removed O2, states it was bothering his nose em MDM: 08:42 Patient medically screened. [facility] 09:42 Differential diagnosis: abnormal EKG, acute myocardial infarction, acute pericarditis, jr8 anxiety, chest wall pain, cholecystitis, Cholelithiasis costochondritis, esophagitis, gastritis, gastroesophageal reflux disease (GERD), myocarditis, pancreatitis, pleurisy, pneumonia, pneumothorax, pulmonary embolus, stable angina, thoracic aortic disection, unstable angina. The patient was not given aspirin in the Emergency Department. Patient reports taking aspirin within the past 24 hours. Data reviewed: vital signs, nurses notes, lab test result(s), EKG, radiologic studies, plain films. Data interpreted: Pulse oximetry: on room air is 100 %. Interpretation: normal. 09:49 Physician consultation: Sawyer Ha MD was called at 09:50, was contacted at [facility] 09:50, regarding admission, to the telemetry unit. consult, patient's condition, and will see patient. 11/08 08:41 Order name: Basic Metabolic Panel [facility] 11/08 08:41 Order name: CBC with Diff [facility] 11/08 08:41 Order name: LFT's [facility] 11/08 08:41 Order name: Magnesium [facility] 11/08 08:41 Order name: NT PRO-BNP [facility] 11/08 08:41 Order name: PT-INR [facility] 11/08 08:41 Order name: Troponin (emerg Dept Use Only) [facility] 11/08 08:57 Order name: DD em 11/08 09:07 Order name: CBC with Automated Diff; Complete Time: 09:11 EDMS 11/08 09:10 Order name: Protime (+INR); Complete Time: 09:11 EDMS 11/08 09:16 Order name: D-Dimer; Complete Time: 09:16 EDMS 11/08 09:25 Order name: Basic Metabolic Panel; Complete Time: 09:28 EDMS 11/08 09:25 Order name: Liver (Hepatic) Function; Complete Time: 09:28 EDMS 11/08 09:25 Order name: Troponin (Emerg Dept Use Only); Complete Time: 09:28 EDMS 11/08 08:41 Order name: XRAY Chest (1 view) [facility] 11/08 08:41 Order name: EKG; Complete Time: 08:43 11/08 08:41 Order name: Cardiac monitoring; Complete Time: 08:51 [facility] 11/08 08:41 Order name: EKG - Nurse/Tech; Complete Time: 08:53 11/08 08:41 Order name: IV Saline Lock; Complete Time: 09:58 11/08 08:41 Order name: Labs collected and sent; Complete Time: 09:58 11/08 08:41 Order name: O2 Per Protocol; Complete Time: 08:53 11/08 08:42 Order name: O2 Sat Monitoring; Complete Time: 08:53 11/08 09:25 Order name: NT PRO-BNP; Complete Time: 09:28 EDMS 11/08 09:25 Order name: Magnesium; Complete Time: 09:28 EDMS 11/08 10:38 Order name: RAD; Complete Time: 10:43 EDMS EC:07 Rate is 100 beats/min. Rhythm is regular, Sinus Rhythm. QRS [place] is Normal. DE interval jr8 is normal at 118 msec. QRS interval is normal at 88 msec. QT interval is normal at 443 msec. No Q waves. T waves are Inverted in leads I, aVL. ST Segment is depressed in leads I, aVL, V5, 1-2mm. Clinical impression: Cardiac ischemia. Interpreted by me. Reviewed by me. Administered Medications: 08:52 Drug: Nitroglycerin 0.4 mg Route: Sublingual; 08:58 Follow up: Response: No adverse reaction; Marked relief of symptoms; Pain is decreased em 09:00 Follow up: Response: No adverse reaction; Marked relief of symptoms; Pain is decreased em 09:09 Drug: Tylenol 1000 mg Route: PO; em 10:15 Follow up: Response: No adverse reaction; Marked relief of symptoms; Pain is decreased em 09:17 Drug: Lopressor 5 mg Route: IVP; Site: right antecubital; em 09:30 Follow up: Response: No adverse reaction; Marked relief of symptoms; Pain is decreased em 09:56 Not Given (Physician Discretion; increaded to 100 mg per provider ): Lovenox 1 mg/kg em Sub-Q once 09:56 Drug: Lovenox 100 mg Route: Sub-Q; Site: right lower abdomen; em 10:14 Follow up: Response: No adverse reaction em Disposition: 11/09 08:25 Co-signature as Attending Physician, Akin Eng MD I agree with the assessment and bret plan of care. Disposition: 11/08/19 09:51 Hospitalization ordered by Sawyer Ha for Observation. Preliminary diagnosis is Unstable angina. - Bed requested for Telemetry/MedSurg (observation). - Status is Observation. em - Condition is Fair. - Problem is new. - Symptoms have improved. Signatures: Dispatcher [employer] EDHI Annette Mejia RN RN ch Anderson, Corey, MD MD cha Munoz, Edgar, RN RN Kylie Garcia RN RN Richard Schafer PA PA jr8 Mala Mohan Corrections: (The following items were deleted from the chart) 11/08 10:45 09:51 Hospitalization Ordered by Sawyer Ha MD for Observation. Preliminary eb diagnosis is Unstable angina. Bed requested for Telemetry/MedSurg (observation). Status is Observation. Condition is Fair. Problem is new. Symptoms have improved. jr8 11:03 10:45 11/08/2019 09:51 Hospitalization Ordered by Sawyer Ha MD for Observation. em Preliminary diagnosis is Unstable angina. Bed requested for Telemetry/MedSurg (observation). Status is Observation. Condition is Fair. Problem is new. Symptoms have improved. eb
--- NOTE | 2019-11-08 10:25 | RAD REPORT ---
EXAM DESCRIPTION: RAD - Chest Single View - 11/08/2019 9:51 am CLINICAL HISTORY: CHEST PAIN COMPARISON: Chest Single View dated 08/24/2018; Chest Single View dated 07/21/2017 TECHNIQUE: AP portable chest image was obtained 11/08/2019 9:51 am . FINDINGS: Lungs are clear. Heart and vasculature are normal. No measurable pleural effusion and no p neumothorax. No acute bony abnormality seen. No acute aortic findings suspected. IMPRESSION: No acute cardiopulmonary process.
[2019-11-08] MEDS ORDERED: ENOXAPARIN 100 MG/ML SYR SQ SCH (11:17)
[2019-11-08] MEDS ORDERED: ONDANSETRON 4 MG/2 ML VIAL IV PRN (11:17)
[2019-11-08] MEDS ORDERED: MORPHINE 4 MG/ML SYR IV PRN (11:17)
[2019-11-08] MEDS ORDERED: NITROGLYCERIN 0.4 MG/TAB SL PRN (11:17)
[2019-11-08 11:35] VITALS: BMI 29.7
[2019-11-08 13:03] LABS: Absolute Lymphocytes (CBC) 1.6 K/uL (0.7-4.9); Basophils % 0.3 % (0-1.3); Hematocrit 46.8 % (39.6-49.0); Lymphocytes % 16.6 % (15.3-44.8); MPV 9.1 fL (7.6-11.3); RBC Red Blood Cell Count 5.33 M/uL (4.33-5.43)
[2019-11-08 13:20] LABS: CKMB Creatine Kinase MB < 1.0 ng/mL (0.3-3.6); Creatine Phosphokinase 41 U/L (39-308); Troponin I 0.03 ng/mL (0.0-0.045)
[2019-11-08] MEDS: NA CHLORIDE 0.9% 1,000 ML IV SCH ×2 (13:38→20:13)
[2019-11-08 19:55] LABS: CKMB Creatine Kinase MB 1.2 ng/mL (0.3-3.6); Creatine Phosphokinase 44 U/L (39-308); Troponin I < 0.02 ng/mL (0.0-0.045)
--- NOTE | 2019-11-08 20:07 | HP ---
Date of Admission: 11/08/2019 Reason For Admission: Shortness of breath with chest discomfort. History Of Present Illness: This is a 39-year-old gentleman with history of hypertension, presented to the emergency room with substernal chest pain started today. The patient describes the pain as pr essure radiating into his left arm associated with shortness of breath when he was just walking. In emergency room, patient was evaluated. EKG was unremarkable. Cardiac enzymes were negative. Chest x-ray was negative and he was admitted to be ruled out. 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 Bain. He had an angiogram 2 years ago. He has high blood pressure, which is not very we ll controlled. Review of Systems: Otherwise as below. Currently, he is lying in bed. He looks comfortable. He has no nausea, no vomi ting, no abdominal pain. Past Medical History: Significant for hypertension. Past Surgical History: None. Allergies: NONE. Home Medications: On terazosin 5 mg twice a day, nifedipine 90 mg daily, metoprolol 100 mg half tabl et twice a day. Social History: He is , has 2 kids. 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 He does smoke 1 pack a day for 70 years. Does not drink or use any street drugs. Family History: Father of cancer when the patient was 13-year-old, mother alive and healthy. Review of Systems: Denies any fever, chills, night sweats, dizziness, lightheaded, headache, blurred vision. There is n o cough, sputum. He does have shortness of breath with exertion, chest pain, as I mentioned above. There was no PND or orthopnea. I have no lower extremity edema. No nausea, no vomiting. Currently, no abdominal pain. No change in bowel movement, diarrhea, constipation, dysuria, frequency, urgency , hematuria. No history of depression, anxiety, seizure or stroke. Physical Examination: Vital Signs: Currently, blood pressure is 145/96, respiratory rate 16, pulse 85, temperature 97.6. General: He is alert, oriented x3, does not look in any distress. HEENT: Atraumatic, normocephalic. PERRLA. Oral mucosa is moist. Neck: Supple. No JVD. No carotid bruits. Chest: Clear to auscultation. Good air entry. Heart: Regular rate and rhythm, S1 normal. No gallop or murmur. Abdomen: Soft, nontender. No masses. No hepatosplenomegaly. Positive bowel sounds. Extremities: No clubbing, cyanosis, or edema. No calf tenderness. Neurologic: Grossly intact. Cranial nerve exam 2 through 12 intact. Normal sensation. No asterixi s. Normal muscle strength. Laboratory Data: Today, showed CBC was normal except for hemoglobin 17, hematocrit 50.5. Chemistry within normal except for creatinine 1.46, GFR 53, glucose 138. Cardiac enzyme first set negative. Assessment And Plan: This is a 39-year-old gentleman with history of hypertension, presented with pr ogressive shortness of breath as well as chest discomfort. 1.Chest pain, rule out myocardial infarction. We will admit patient to floor. Keep him on anticoag ulation with full dose of Lovenox, aspirin and Plavix. He will be also on metoprolol, low dose of AC E inhibitor as well. Cardiology consult requested as the patient have a previous cardiac cath which was negative. 2.Shortness of breath still most likely related to his chest pain. His BNP was normal as well x-ray normal, so we will not order echocardiogram. 3.Renal insufficiency. I will start patient on fluid. 4.Hyperglycemia. The patient was in fact able to check hemoglobin A1c to rule out diabetes. 5.We will check lipid panel. 6.Hypertension. We will resume patient on home medication with terazosin and nifedipine. 7.Tobacco abuse, advised strongly to quit smoking. HAI/WALTER Voice ID: [id number]
[2019-11-08] MEDS: TERAZOSIN HCL 5 MG CAP PO SCH (20:11)
[2019-11-08] MEDS: ENOXAPARIN 100 MG/ML SYR SQ SCH (20:11)
[2019-11-08] MEDS: METOPROLOL TAR 50 MG TAB PO SCH (20:11)
[2019-11-08] MEDS ORDERED: POTASSIUM CL SA 10 MEQ TAB PO ONE (21:00)
[2019-11-08] MEDS ORDERED: ATORVASTATIN 20 MG TAB PO SCH (21:00)
[2019-11-08 22:05] VITALS: O2SAT 94
[2019-11-09 05:23] LABS: BUN Blood Urea Nitrogen 15 mg/dL (7-18); Bicarbonate 26 mmol/L (21-32); CKMB Creatine Kinase MB < 1.0 ng/mL (0.3-3.6); Creatine Phosphokinase 35 U/L (39-308); Glucose Level 85 mg/dL (74-106); HDL Cholesterol 31 mg/dL (40-60); LDL Cholesterol, Calculated 103 (<130); Sodium Level 142 mmol/L (136-145); Troponin I < 0.02 ng/mL (0.0-0.045)
[2019-11-09] MEDS: METOPROLOL TAR 50 MG TAB PO SCH (05:32)
[2019-11-09] MEDS: NA CHLORIDE 0.9% 1,000 ML IV SCH (05:33)
[2019-11-09] MEDS: TERAZOSIN HCL 5 MG CAP PO SCH (08:56)
[2019-11-09] MEDS: ENOXAPARIN 100 MG/ML SYR SQ SCH (08:59)
[2019-11-09 09:00] VITALS: BP 152/82
[2019-11-09] MEDS ORDERED: NIFEDIPINE XL 90 MG TABLET PO SCH (09:00)
[2019-11-09] MEDS ORDERED: ASPIRIN 325 MG TAB PO SCH (09:00)
[2019-11-09] MEDS ORDERED: CLOPIDOGREL 75 MG TABLET PO SCH (09:00)
--- NOTE | 2019-11-09 09:52 | P.DS ---
Admission Date: 11/08/19 Discharge Date: 11/09/19 Disposition: ROUTINE DISCHARGE Discharge Condition: GOOD Brief History of Present Illness: 39-year-old gentleman with history of hypertension, presented to the emergency room with substernal chest pain started today. The patient describes the pain as pressure radiating into his left arm associated with shortness of breath when he was just walking. In emergency room, patient was evaluated. EKG was unremarkable. Cardiac enzymes were negative. Chest x-ray was negative and he was admitted to be ruled out. 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 He had an angiogram 2 years ago. He has high blood pressure, which is not very well controlled. Hospital Course: The patient was admitted and was started on aspirin, statin. Patient was monitored under telemetry. Trended cardiac enzymes which were negative. Chest x-ray was negative showing not showing any acute cardiopulmonary changes. The patient wanted to go home and is being discharged home today in a stable condition with advice to follow up with cardiology as outpatient for possible stress test. He was also advised about smoking cessation and control of blood pressure. he was also started on Protonix for epigastric pain/GERD Patient to follow up with Cardiology for outpatient stress test Vital Signs/Physical Exam: Temp Pulse Resp BP Pulse Ox 98.6 F 78 16 152/82 H 96 11/09/19 04:00 11/09/19 08:57 11/09/19 04:00 11/09/19 08:57 11/09/19 04:00 General: Alert, In no apparent distress HEENT: Atraumatic, Normocephalic Neck: Supple Respiratory: Clear to auscultation bilaterally, Normal air movement Cardiovascular: Normal pulses, Regular rate/rhythm Capillary refill: <2 Seconds Gastrointestinal: Normal bowel sounds, Soft and benign Musculoskeletal: No clubbing, No swelling Integumentary: No rashes Neurological: Normal speech, Normal strength at 5/5 x4 extr Lymphatics: No axilla or inguinal lymphadenopathy Laboratory Data at Discharge: WBC 9.8 K/uL (4.3-10.9) D 11/08/19 12:47 Hgb 15.9 g/dL (13.6-17.9) 11/08/19 12:47 Hct 46.8 % (39.6-49.0) 11/08/19 12:47 Plt Count 243 K/uL (152-406) 11/08/19 12:47 PT 13.1 SECONDS (9.5-12.5) H 11/08/19 08:53 INR 1.11 11/08/19 08:53 Sodium 142 mmol/L (136-145) 11/09/19 04:20 Potassium 4.0 mmol/L (3.5-5.1) 11/09/19 04:20 BUN 15 mg/dL (7-18) 11/09/19 04:20 Creatinine 1.27 mg/dL (0.55-1.3) 11/09/19 04:20 Glucose 85 mg/dL (74-106) 11/09/19 04:20 Magnesium 1.9 mg/dL (1.8-2.4) 11/08/19 08:53 Total Bilirubin 0.5 mg/dL (0.2-1.0) 11/08/19 08:53 AST 17 U/L (15-37) 11/08/19 08:53 ALT 33 U/L (12-78) 11/08/19 08:53 Alkaline Phosphatase 61 U/L (45-117) 11/08/19 08:53 Troponin I < 0.02 ng/mL (0.0-0.045) 11/09/19 04:20 Triglycerides 133 mg/dL (<150) 11/09/19 04:20 Cholesterol 161 mg/dL (<200) 11/09/19 04:20 HDL Cholesterol 31 mg/dL (40-60) L 11/09/19 04:20 Cholesterol/HDL Ratio 5.19 11/09/19 04:20 Home Medications: Metoprolol Succinate [Toprol Xl] 50 mg PO BID 08/24/18 Nifedipine [Nifedipine ER] 1 tab PO DAILY 08/24/18 Terazosin HCl 10 mg PO BID 08/24/18 Aspirin 81 mg PO DAILY #30 tab.chew 11/09/19 Pantoprazole Sodium [Protonix] 40 mg PO DAILY #30 tablet. 11/09/19 New Medications: Aspirin 81 mg PO DAILY #30 tab.chew Pantoprazole Sodium [Protonix] 40 mg PO DAILY #30 tablet. Diet: AHA Activity: Ad maya Followup: Brice Angel MD [ACTIVE - CAN ADMIT] -
--- NOTE | 2019-11-09 11:25 | EKG ---
Test Date: 2019-11-08 Test Time: 08:44:29 [employer] Coach: [place] MEASUREMENT RESULTS: Intervals: Rate: 100 MS: 118 QRSD: 88 QT: 344 QTc: 443 [place]: P: 29 MS: 118 QRS: 24 T: 142 INTERPRETIVE STATEMENTS: Normal sinus rhythm ST & T wave abnormality, consider lateral ischemia Abnormal ECG Compared to ECG 08/24/2018 04:22:47 ST (T wave) deviation is less pronounced Atrial abnormality no longer present Left ventricular hypertrophy no longer present Prolonged QT interval no longer present Electronically Signed On 11-09-19 11:25:14 DIRECTOR OF [employer] by Brice Angel
[2019-11-09 14:04] VITALS: TEMP 97.8
== END 2019-11-09 10:24 | disposition home or self-care (01) ==
LOC: ER 08:38 → ERHOLD 10:26 → 2ND 10:59
PROVIDERS: ADMIT Internal Medicine; ATTEND Internal Medicine
DX: R07.9 Chest pain, unspecified (principal); I10 Essential (primary) hypertension; N28.9 Disorder of kidney and ureter, unspecified; R73.9 Hyperglycemia, unspecified; F17.210 Nicotine dependence, cigarettes, uncomplicated
CPT/HCPCS: 93005; 85025 ×2; 80048 ×2; 36415 ×2; 83735; 82550 ×3; 85610; 80061; 85379; 80076; 83036; 84484 ×4; 82553 ×3; 83880; 71045; 96372; 96374; 99285; J1650 ×2; J7030 ×3; G0378 ×3